=== PATIENT | female | born 1970 | race Caucasian/White ===

== ENCOUNTER → 2017-03-25 | Outpatient (CLI) | payer OTHER ==
[2017-03-25 16:22] LABS: BILIRUBIN,URINE NEGATIVE (NEGATIVE); BLOOD/HEMOGLOBIN,URINE 5+ (NEGATIVE); GLUCOSE, URINE NEGATIVE (NEGATIVE); KETONES,URINE NEGATIVE (NEGATIVE); LEUKOCYTE ESTERASE ,URINE NEGATIVE (NEGATIVE); NITRITES,URINE NEGATIVE (NEGATIVE); PROTEIN,URINE 1+ (NEGATIVE); UROBILINOGEN,URINE NORMAL (NORMAL)
[2017-03-25 16:24] LABS: BASOPHILS # (AUTO) 0.1 X10^3/uL (0.0-0.1); BASOPHILS % (AUTO) 0.6 % (0.2-1.0); EOSINOPHILS # (AUTO) 0.1 x10^3/uL (0.0-0.2); EOSINOPHILS % (AUTO) 1.7 % (0.9-2.9); HEMATOCRIT 37.3 % (36.0-47.0); HEMOGLOBIN 12.5 g/dL (12.0-16.0); LYMPHOCYTES % (AUTO) 34.5 % (21.0-51.0); MEAN CORPUSCULAR HEMOGLOBIN 29.7 pg (27.0-34.0); MEAN CORPUSCULAR HGB CONC 33.6 g/dL (33.0-35.0); MEAN CORPUSCULAR VOLUME 88.3 fL (80.0-100.0); MEAN PLATELET VOLUME 7.3 fL (7.4-11.0); MONOCYTES # (AUTO) 0.5 x10^3/uL (0.3-0.8); MONOCYTES % (AUTO) 6.2 % (0.0-13.0); PLATELET COUNT 392 X10^3/uL (150.0-450.0); RED BLOOD COUNT 4.22 X10^6/uL (3.5-5.4); RED CELL DISTRIBUTION WIDTH 14.7 % (11.6-16.5); WHITE BLOOD COUNT 8.8 X10^3/uL (3.6-10.0)
[2017-03-25 16:29] LABS: BLOOD UREA NITROGEN 15 mg/dL (7-18); CALCIUM 8.9 mg/dL (8.5-10.1); CARBON DIOXIDE 26.1 mmol/L (21-32); CHLORIDE 106 mmol/L (98-107); CREATININE 0.86 mg/dL (0.55-1.02); SODIUM 142 mmol/L (136-145); eGFR BLACK RACES > 60 (>60); eGFR NON BLACK RACES > 60 (>60)
[2017-03-25 16:30] LABS: APPEARANCE,URINE CLEAR (CLEAR); BACTERIA,URINE 1+ /HPF (NEGATIVE); COLOR,URINE YELLOW (YELLOW); RBC,URINE 25-30 /HPF (NEGATIVE); SQUAMOUS EPITHELIAL CELL,UR MODERATE /HPF (NEGATIVE)
[2017-03-25 16:44] LABS: SERUM PREGNANCY TEST, QUAL NEGATIVE <10 mIU/mL
--- NOTE | 2017-03-28 12:17 | RAD ---
HISTORY: Preop Study: Two-view chest Comparison: None Findings: The trachea is midline. The cardiac silhouette is unremarkable. The lungs are clear without focal i nfiltrate or effusion. The bony thorax is unremarkable. IMPRESSION: 1. No acute cardiopulmonary disease. Reported By:
== END | disposition home or self-care (01) ==
LOC: LAB 15:43
PROVIDERS: ATTEND Specialist
DX: Z01.818 Encounter for other preprocedural examination (principal); Z01.810 Encounter for preprocedural cardiovascular examination; Z01.811 Encounter for preprocedural respiratory examination; Z32.00 Encounter for pregnancy test, result unknown; Z01.812 Encounter for preprocedural laboratory examination
CPT/HCPCS: 36415; 71020; 80048; 81001; 84703; 85025; 85610; 85730; 86850; 86900; 86901; 93005; 93010

== ENCOUNTER 2017-03-29 06:18 | Day surgery (SDC) | payer OTHER ==
[2017-03-29] MEDS ORDERED: NS 50 ML IV + SPIKE MINIBAG* 50 ML IV ONE (06:20)
[2017-03-29] MEDS ORDERED: D5 1/2 NS 1000 ML 1,000 ML IV ONE (06:20)
[2017-03-29] MEDS ORDERED: ANCEF VIAL 1 GM ONE (06:20)
[2017-03-29] MEDS: NS 1000 ML 1,000 ML ONE ×2 (07:02→07:27)
[2017-03-29] MEDS ORDERED: ZOFRAN INJ 4 MG VIAL IVP PRN (08:06)
[2017-03-29] MEDS ORDERED: BENADRYL INJ 50 MG VIAL IVP PRN (08:06)
[2017-03-29] MEDS ORDERED: DILAUDID INJ IVP PRN (08:06)
[2017-03-29] MEDS ORDERED: REGLAN INJ 10 MG VIAL IVP PRN (08:06)
[2017-03-29] MEDS ORDERED: PHENERGAN INJ 25 MG IVP PRN (08:06)
[2017-03-29 09:27] VITALS: BP 124/87
[2017-03-29] MEDS ORDERED: DIPRIVAN VIAL ONE (15:31)
[2017-03-29] MEDS ORDERED: TORADOL 30 MG VIAL ONE (15:31)
[2017-03-29] MEDS ORDERED: VERSED ONE (15:31)
== END 2017-03-29 09:15 | disposition home or self-care (01) | DRG 743 ==
LOC: SURG1 06:18
PROVIDERS: ATTEND Specialist
PROC: 0U5B8ZZ Destruction of Endometrium, Via Natural or Artificial Opening Endoscopic (ICD-10-PCS; principal; 2017-03-29 07:30)
DX: N92.6 Irregular menstruation, unspecified (principal); N94.5 Secondary dysmenorrhea; D25.9 Leiomyoma of uterus, unspecified
CPT/HCPCS: A4222; J0690; J1885; J2250; J3490; J7042